=== PATIENT | female | born 1975 | race Caucasian/White ===

== ENCOUNTER 2017-07-21 14:20 | Outpatient (CLI) | payer BC ==
--- NOTE | 2017-07-21 15:50 | ULT ---
BLADDER ULTRASOUND: 07/21/17 HISTORY: Right sided flank pain. FINDINGS/IMPRESSION: Please see accompanying renal ultrasound dictation for evaluation of the bladder. POS: [facility]
--- NOTE | 2017-07-21 15:50 | ULT ---
RENAL ULTRASOUND: DATE: 07/21/17. HISTORY: Left-sided flank pain. FINDINGS: Multiple longitudinal and transverse images of the kidneys and bladder are obtained using multihertz curvilinear transducer. Real-time and color flow images are obtained to evaluate the kidneys. Images demonstrate the right kidney to measure 9.9 and the left kidney 9.3 cm from pole to pole. No evidence of renal parenchymal masses or lesions seen. No evidence of hydronephrosis seen. No signif icant difference is seen between the pre- and post-bladder volume. Prevoid volume measures 26 mL and postvoid volume 34 mL. According to patient, he is unable to void. This may be due to the fact joelle t there is only a small amount of urine within the bladder at the time when the patient was asked to void. IMPRESSION: No evidence of hydronephrosis or significant evidence of bladder dilatation or obstruction. POS: [facility]
== END 2017-07-21 14:21 | disposition home or self-care (01) ==
LOC: ULT 14:20
PROVIDERS: ATTEND Family Medicine
DX: R10.9 Unspecified abdominal pain (principal)
CPT/HCPCS: 76770; 76856; 80053; 84439; 84443; 85025; 87086

== ENCOUNTER 2017-08-01 15:30 | Outpatient (CLI) | payer BC ==
--- NOTE | 2017-08-01 17:46 | RAD ---
TWO VIEWS OF THE CHEST: DATE: 08/01/17. COMPARISON: None. HISTORY: Pain. FINDINGS: No pneumothorax, pleural fluid, focal consolidation, or alveolar edema. Heart and mediastinal contou rs are unremarkable. IMPRESSION: No acute findings. POS: [facility]
--- NOTE | 2017-08-01 17:47 | RAD ---
FRONTAL AND LATERAL IMAGING OF THE THORACIC SPINE: DATE: 08/01/17. COMPARISON: None. HISTORY: Thoracic pain. FINDINGS: Thoracic pedicles appear intact on frontal imaging. There is mild disk space narrowing and anterior osteophyte formation within the lower thoracic spine. Vertebral body height and alignment appears no rmal. No acute fracture seen. IMPRESSION: Mild lower lumbar spine degenerative change. No acute osseous abnormality. POS: [facility]
--- NOTE | 2017-08-01 17:49 | RAD ---
THREE VIEWS OF THE LUMBAR SPINE: DATE: 08/01/17. COMPARISON: None. HISTORY: Pain. FINDINGS: Linear densities in the pelvis suggest Essure devices. Lumbar pedicles appear intact on the frontal imaging. There is disk space narrowing and mild degenerative end plate change at the lumbosacral junction. Th ere is mild anterolisthesis at the lumbosacral junction measuring approximately 7 mm. There is facet hypertrophy at L4-5 and L5-S1. No acute osseous abnormality noted. IMPRESSION: Lower lumbar spine degenerative change. If there are radicular symptoms, MRI suggested. POS: [facility]
--- NOTE | 2017-08-01 17:50 | RAD ---
THREE VIEWS OF THE LEFT RIBS: FINDINGS: No displaced left-sided rib fracture is evident. Visualized left lung is clear. IMPRESSION: No displaced left-sided rib fracture. POS: [facility]
== END 2017-08-01 15:31 | disposition home or self-care (01) ==
LOC: SCSRAD 15:30
PROVIDERS: ATTEND Family Medicine
DX: M54.6 Pain in thoracic spine (principal); M47.896 Other spondylosis, lumbar region
CPT/HCPCS: 71046; 72072; 72100